=== PATIENT | male | born 1970 ===

== ENCOUNTER 2017-04-01 14:06 | Emergency (ER) | payer OTHER ==
[2017-04-01 14:11] VITALS: TEMP 98.3; O2SAT 98
--- NOTE | 2017-04-01 15:41 | C.PDOC ---
History Of Present Illness 46 y/o male presents to ED with complaints of rash to groin for 1 week. Patient states he started Clotrimazole yesterday and rash had not improved. Patient denies dysuria, chills, fever or any other complaints at this time. Time Seen by Provider: 04/01/17 14:28 Chief Complaint (Nursing): Abnormal Skin Integrity History Per: Patient History/Exam Limitations: no limitations Onset/Duration Of Symptoms: Days Current Symptoms Are (Timing): Still Present Past Medical History Reviewed: Historical Data, Nursing Documentation, Vital Signs Vital Signs: Last Vital Signs Temp 98.3 F 04/01/17 14:08 Pulse 110 H 04/01/17 14:08 Resp 20 04/01/17 14:08 BP 152/89 H 04/01/17 14:08 Pulse Ox 98 04/01/17 15:52 - Medical History PMH: No Chronic Diseases Surgical History: No Surg Hx Family History: States: No Known Family Hx - Social History Hx Alcohol Use: No Hx Substance Use: No - Immunization History Hx Tetanus Toxoid Vaccination: No Hx Influenza Vaccination: No Hx Pneumococcal Vaccination: No Review Of Systems Constitutional: Negative for: Fever, Chills Genitourinary: Negative for: Dysuria, Hematuria Skin: Positive for: Rash Neurological: Negative for: Weakness, Numbness Physical Exam - Physical Exam Appears: Non-toxic, No Acute Distress Skin: Warm, Dry, Rash (Erythematous macular w/cellulite lesions (-) superinfection to groin area) Head: Atraumatic, Normacephalic Eye(s): bilateral: Normal Inspection Oral Mucosa: Moist Neck: Normal ROM, Supple Chest: Symmetrical Male Genital: No Testicular Tenderness, No Circumcised, Other ((-)penile lesions ) Extremity: Normal ROM, Capillary Refill (<2 seconds) Neurological/Psych: Oriented x3 ED Course And Treatment O2 Sat by Pulse Oximetry: 98 (RA) Pulse Ox Interpretation: Normal Medical Decision Making Medical Decision Making: Assessment: Jotaage Disposition Counseled Patient/Family Regarding: Studies Performed, Diagnosis, Rx Given - Disposition Disposition: HOME/ ROUTINE Disposition Time: 15:40 Condition: IMPROVED Additional Instructions: follow up with your doctor in 2 days call to make an appointment take medications as prescribed return to ER if symptoms worsens or progress Prescriptions: Nystatin 60 gm TP BID 21 Days #1 powder Instructions: Jock Itch (ED) Forms: [facility] (French), General Discharge Instructions, Gen Discharge Inst Chadian, [facility] (Chadian) Print Language: ARABIC - Clinical Impression Clinical Impression: Deni itch - Scribe Statement The provider has reviewed the documentation as recorded by the Becca Anna All medical record entries made by the Karloibe were at my direction and personally dictated by me. I have reviewed the chart and agree that the record accurately reflects my personal performance of the history, physical exam, medical decision making, and the department course for this patient. I have also personally directed, reviewed, and agree with the discharge instructions and disposition.
[2017-04-01 16:01] VITALS: BP 124/72; PULSE 72; RESP 18
== END 2017-04-01 16:01 | disposition home or self-care (01) ==
LOC: C.ER 14:06
DX: B35.6 Tinea cruris (principal)

== ENCOUNTER 2017-10-26 15:57 | Emergency (ER) | payer MEDICAID ==
[2017-10-26 17:18] LABS: BASO % 0.4 % (0.0-2.0); EOS # 0.1 K/uL (0.0-0.7); EOS % 0.5 % (0.0-4.0); HEMOGLOBIN 14.4 g/dL (12.0-18.0); LYMPH # 0.9 K/uL (1.0-4.3); LYMPH % 7.9 % (20.0-40.0); MEAN CELL VOLUME 90.6 fL (80.0-94.0); MEAN CORPUSCULAR HEMOGLOBIN 31.2 pg (27.0-31.0); MEAN CORPUSCULAR HGB CONC 34.4 g/dL (33.0-37.0); MEAN PLATELET VOLUME 9.7 fL (7.2-11.7); MONO # 0.8 K/uL (0.0-0.8); MONO % 6.7 % (0.0-10.0); NEUT # 10.1 K/uL (1.8-7.0); NEUT % 84.5 % (50.0-75.0); NRBC % 0.1 % (0.0-2.0); PLATELET COUNT 146 K/uL (130-400); RBC 4.64 Mil/uL (4.40-5.90); RED CELL DISTRIBUTION WIDTH 12.8 % (11.5-14.5); WHITE BLOOD COUNT 11.9 K/uL (4.8-10.8)
[2017-10-26 17:24] LABS: URINE BILIRUBIN NEGATIVE (NEGATIVE); URINE BLOOD 1+ (NEGATIVE); URINE CLARITY Clear (Clear); URINE COLOR Yellow (YELLOW); URINE GLUCOSE (UA) NORMAL (Normal); URINE LEUKOCYTE ESTERASE NEG Leu/uL (Negative); URINE PROTEIN NEGATIVE (NEGATIVE); URINE UROBILINOGEN NORMAL mg/dL (0.2-1.0)
[2017-10-26 17:29] LABS: INR 1.1; PROTHROMBIN TIME 12.3 SECONDS (9.7-12.2)
[2017-10-26 17:30] LABS: VENOUS BLOOD GAS BASE EXCESS 0.8 mmol/L (0.0-2.0); VENOUS BLOOD GAS PCO2 43 mmHg (40-60); VENOUS BLOOD GAS PO2 28 mm/Hg (30-55); VENOUS BLOOD PH 7.39 (7.32-7.43)
[2017-10-26 17:37] LABS: ALB/GLOB RATIO 1.5 (1.0-2.1); ALT/SGPT 71 U/L (21-72); AST/SGOT 58 U/L (17-59); BLOOD UREA NITROGEN 12 mg/dL (9-20); CALCIUM 8.6 mg/dl (8.6-10.4); GFR AFRICAN-AMERICAN > 60; GFR NON-AFRICAN AMERICAN > 60
--- NOTE | 2017-10-26 17:52 | RAD ---
HISTORY: Sepsis Patient COMPARISON: No prior. FINDINGS: LUNGS: No active pulmonary disease. PLEURA: No significant pleural effusion identified, no pneumothorax apparent. CARDIOVASCULAR: Normal. OSSEOUS STRUCTURES: No significant abnormalities. VISUALIZED UPPER ABDOMEN: Normal. OTHER FINDINGS: None. IMPRESSION: No active disease.
[2017-10-26 18:07] VITALS: BP 137/79; PULSE 103; RESP 16; TEMP 99.6; O2SAT 93
[2017-10-26 18:12] LABS: BANDS 5 % (0-2); EOSINOPHIL 1 % (0-4); LYMPHOCYTE 6 % (20-40); MONOCYTE 3 % (0-10); NEUTROPHIL 84 % (50-75); REACTIVE LYMPHOCYTES 1 % (0-0); TOTAL CELLS COUNTED 100
[2017-10-26 18:13] LABS: PLATELET ESTIMATE NORMAL (NORMAL)
--- NOTE | 2017-10-26 18:20 | C.PDOC ---
History Of Present Illness Patient is a 47 y/o male who presents to the ED with complaints of mild nausea, productive cough, and subjective fever for the last 1 week. Patient reports being seen in another hospital yesterday for the same symptoms and was discharged. Patient denies any chest pain, shortness of breath, or recent travel. No other physical complaints at this time. Chief Complaint (Nursing): Fever History Per: Patient History/Exam Limitations: no limitations Onset/Duration Of Symptoms: Days (1 week) Current Symptoms Are (Timing): Still Present Associated Symptoms: Cough (productive), Sputum, Nausea (mild) Recent travel outside of the [place]: No Past Medical History Reviewed: Historical Data, Nursing Documentation, Vital Signs Vital Signs: Last Vital Signs Temp 99.6 F 10/26/17 18:06 Pulse 103 H 10/26/17 18:06 Resp 16 10/26/17 18:06 BP 137/79 10/26/17 18:06 Pulse Ox 93 L 10/26/17 20:18 - Medical History PMH: No Chronic Diseases Surgical History: No Surg Hx Family History: States: No Known Family Hx - Social History Hx Tobacco Use: Yes (heavy smoker) Hx Alcohol Use: Yes Hx Substance Use: No - Immunization History Hx Tetanus Toxoid Vaccination: No Hx Influenza Vaccination: No Hx Pneumococcal Vaccination: No Review Of Systems Constitutional: Positive for: Fever (subjective) Cardiovascular: Negative for: Chest Pain Respiratory: Positive for: Cough, Sputum. Negative for: Shortness of Breath Gastrointestinal: Positive for: Nausea (mild) Physical Exam - Physical Exam Appears: Well, Non-toxic, No Acute Distress Skin: Normal Color, Warm, Dry Head: Atraumatic, Normacephalic Oral Mucosa: Moist Neck: Supple Cardiovascular: Rhythm Regular, No Murmur Respiratory: No Accessory Muscle Use, No Rales, Rhonchi (scant rhonchi on right) , No Wheezing Gastrointestinal/Abdominal: Soft, No Tenderness, No Guarding, No Rebound Extremity: Normal ROM (x4), No Tenderness, No Swelling Neurological/Psych: Oriented x3, Normal Speech, Normal Cognition ED Course And Treatment - Laboratory Results Result Diagrams: 10/26/17 17:12 10/26/17 17:12 ECG: Interpreted By Me, Viewed By Me ECG Rhythm: Sinus Tachycardia Rate From EC (bpm) O2 Sat by Pulse Oximetry: 93 (room air) Pulse Ox Interpretation: Normal - Radiology CXR: Interpreted by Me, Viewed By Me CXR Interpretation: Yes: No Acute Disease Progress Note: EKG, CXR, VBG, urine culture ordered. Tylenol and IV fluids administered. Disposition - Disposition Referrals: Chad Salazar, [Non-Staff] - Disposition: HOME/ ROUTINE Disposition Time: 17:55 Condition: GOOD Additional Instructions: ANNE HURLEY, thank you for letting us take care of you today. Your provider was Antwan Aguayo DO and you were treated for FEVER. The emergency medical care you received today was directed at your acute symptoms. If you were prescribed any medication, please fill it and take as directed. It may take several days for your symptoms to resolve. Return to the Emergency Department if your symptoms worsen, do not improve, or if you have any other problems. Please contact your doctor or call one of the physicians/clinics you have been referred to that are listed on the Patient Visit Information form that is included in your discharge packet. Bring any paperwork you were given at discharge with you along with any medications you are taking to your follow up visit. Our treatment cannot replace ongoing medical care by a primary care provider outside of the emergency department. Thank you for allowing the [facility] team to be part of your care today. Follow up with your primary care doctor tomorrow as scheduled. ANNE HURLEY, jose por dejarnos atenderlo xaviy. Brown proveedor fue Antwan Aguayo DO y usted recibi tratamiento por FIEBRE. La atencin mdica de emergencia que recibi hoy estaba dirigida a ana sntomas agudos. Si le prescribieron algn medicamento, llnelo y tome segn las indicaciones. Ana s ntomas pueden tardar varios kothari en resolverse. Regrese al Departamento de Emergencia si ana sntomas empeoran, no mejoran o si tiene algn otro problema. Comunquese con brown mdico o llame a praveena de los mdicos / clnicas a los que roberts sido referido que figura en el formulario de Informacin de visita del paciente que se incluye en brown paquete de gianfranco. Traiga todos los documentos que recibi al momento del gianfranco junto con los medicamentos que est tomando en brown visita de seguimiento. Nuestro tratamiento no puede reemplazar la atencin mdica en curso por un proveedor de atencin primaria fuera del departamento de emergencia. Jose por permitir que el equipo de [facility] [employer] sea parte de brown cuidado hoy. Arnulfo un seguimiento con brown mdico de atencin primaria maana ashli est programado. Prescriptions: levoFLOXacin [Levaquin] 750 mg PO DAILY #5 tab Instructions: Acute Bronchitis Forms: Gen Discharge Inst [employer] (Hong Konger) Print Language: TAMAZIGHT - Clinical Impression Clinical Impression: Fever, Bronchitis - Scribe Statement The provider has reviewed the documentation as recorded by the Scribe Ally Payton All medical record entries made by the Scribe were at my direction and personally dictated by me. I have reviewed the chart and agree that the record accurately reflects my personal performance of the history, physical exam, medical decision making, and the department course for this patient. I have also personally directed, reviewed, and agree with the discharge instructions and disposition.
--- NOTE | 2017-10-29 05:38 | CARD ---
APPROVED REPORT EKG Measurement Heart [id number] <Conclusion> Sinus tachycardia Otherwise normal ECG
== END 2017-10-26 18:57 | disposition home or self-care (01) ==
LOC: C.ER 15:57
DX: J40 Bronchitis, not specified as acute or chronic (principal); R50.9 Fever, unspecified
CPT/HCPCS: 71045; 80053; 81001; 82803; 83735; 84100; 85025; 85610; 85730; 87040; 87086; 99285; J7120

== ENCOUNTER 2018-03-03 12:11 | Emergency (ER) | payer MEDICAID ==
[2018-03-03 12:31] VITALS: RESP 18
--- NOTE | 2018-03-03 13:24 | RAD ---
Date of service: 03/03/2018 PROCEDURE: Radiographs of the right elbow. HISTORY: r/o fx COMPARISON: No prior. FINDINGS: BONES: Normal. No fracture. JOINTS: Normal. No osteoarthritis. SOFT TISSUES: Normal. JOINT EFFUSION: None. OTHER FINDINGS: None. IMPRESSION: Unremarkable radiographs of the right elbow.
--- NOTE | 2018-03-03 13:38 | C.PDOC ---
History Of Present Illness PAtient comes in with complaints of right elbow pain. 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 Otherwise, no weakness, numbness or tingling of right arm. He has not taken any pain medications and has not been evaluated previously. Time Seen by Provider: 03/03/18 13:00 Chief Complaint (Nursing): Upper Extremity Problem/Injury History Per: Patient History/Exam Limitations: no limitations Onset/Duration Of Symptoms: Persistent Current Symptoms Are (Timing): Still Present Quality: "Pain" Exacerbating Factor(s): Strenuous Use Of Affected Area, Movement Additional History Per: Patient Past Medical History Reviewed: Historical Data, Nursing Documentation, Vital Signs Vital Signs: Last Vital Signs Temp 98 F 03/03/18 12:23 Pulse 106 H 03/03/18 12:23 Resp 18 03/03/18 12:23 BP 154/87 H 03/03/18 12:23 Pulse Ox 95 03/03/18 12:23 - Medical History PMH: HTN, Hypercholesterolemia Surgical History: No Surg Hx Family History: States: No Known Family Hx - Social History Hx Tobacco Use: Yes (heavy smoker) Hx Alcohol Use: Yes Hx Substance Use: No - Immunization History Hx Tetanus Toxoid Vaccination: No Hx Influenza Vaccination: No Hx Pneumococcal Vaccination: No Review Of Systems Musculoskeletal: Positive for: Other (right elbow pain) Neurological: Negative for: Weakness, Numbness Physical Exam - Physical Exam Appears: Non-toxic, No Acute Distress Skin: Normal Color Head: Normacephalic Eye(s): bilateral: Normal Inspection Neck: Supple Chest: Symmetrical Cardiovascular: Rhythm Regular Respiratory: Normal Breath Sounds Extremity: Normal ROM (FROM right elbow), No Tenderness, No Deformity, No Swelling Neurological/Psych: Oriented x3, Normal Motor, Normal Sensation ED Course And Treatment O2 Sat by Pulse Oximetry: 95 (RA) Pulse Ox Interpretation: Normal Medical Decision Making Medical Decision Making: Impression: Right elbow pain plan: -- Motrin 600mg PO Patient reports improvement with pain medication; instructed to take Motrin as needed, follow up with PMD. Disposition - Disposition Referrals: [facility] [Outside] [facility] [Outside] Disposition: HOME/ ROUTINE Disposition Time: 13:25 Condition: GOOD Additional Instructions: ANNE HURLEY, thank you for letting us take care of you today. Your provider was Antwan Aguayo DO and you were treated for LT ARM PAIN. The emergency medical care you received today was directed at your acute symptoms. If you were prescribed any medication, please fill it and take as directed. It may take several days for your symptoms to resolve. Return to the Emergency Department if your symptoms worsen, do not improve, or if you have any other problems. Please contact your doctor or call one of the physicians/clinics you have been referred to that are listed on the Patient Visit Information form that is included in your discharge packet. Bring any paperwork you were given at discharge with you along with any medications you are taking to your follow up visit. Our treatment cannot replace ongoing medical care by a primary care provider outside of the emergency department. Thank you for allowing the [facility] team to be part of your care today. Follow up with the clinic this week for re-evaluation and further management. ANNE HURLEY, jose por dejarnos cuidar de rodney estrada. Brown proveedor fue Antwan Aguayo DO y rodney recibi tratamiento para el [place] LT. La atencin mdica de emergencia que recibi hoy se dirigi a sarah sntomas agudos. Si le recetaron algn medicamento, llnelo y tmelo segn las indicaciones. Los sntomas pueden tardar varios kothari en resolverse. Regrese al Departamento de Emergencias si sarah sntomas empeoran, no mejoran o si tiene otros problemas. Comunquese con brown mdico o llame a praveena de los mdicos / clnicas a los que roberts sido referido que figuran en el formulario de Informacin de visita al paciente que se incluye en brown paquete de gianfranco. Lleve con rodney a brown consulta de seguimiento toda la documentacin que recibi del gianfranco junto con los medicamentos que est tomando. Nuestro tratamiento no puede reemplazar la atencin mdica continua por parte de un proveedor de atencin primaria fuera del departamento de emergencias. Jose por permitir que el equipo de [facility] [employer] sea parte de brown atencin hoy. Arnulfo un seguimiento con la clnica esta semana para reevaluar y administrar ms. Prescriptions: Ibuprofen [Motrin] 600 mg PO Q6 PRN #20 tab PRN Reason: Pain, Moderate (4-7) Instructions: Elbow Sprain (DC) Forms: Gen Discharge Inst Korean, [employer] (Korean) Print Language: SAO TOMEAN - Clinical Impression Clinical Impression: Elbow sprain - Scribe Statement The provider has reviewed the documentation as recorded by the Scribe Gaby Floyd Provider Attestation: All medical record entries made by the Scribe were at my direction and personally dictated by me. I have reviewed the chart and agree that the record accurately reflects my personal performance of the history, physical exam, medical decision making, and the department course for this patient. I have also personally directed, reviewed, and agree with the discharge instructions and disposition.
[2018-03-03 13:50] VITALS: BP 150/82; PULSE 99; TEMP 98.1
[2018-03-03 16:39] VITALS: O2SAT 95
== END 2018-03-03 13:48 | disposition home or self-care (01) ==
LOC: C.ER 12:11
DX: S53.401A Unspecified sprain of right elbow, initial encounter (principal); X50.3XXA Overexertion from repetitive movements, initial encounter